=== PATIENT | female | born 2005 | race Caucasian/White ===

== ENCOUNTER 2024-08-30 10:00 | Emergency (ER) | payer OTHER, SELFPAY ==
[2024-08-30 10:40] VITALS: BP 162/86; PULSE 80; RESP 16; TEMP 36.6; O2SAT 100
--- NOTE | 2024-08-30 10:45 | ED_ITS ---
HPI - Eye Problem General Chief complaint: Eye Problems Stated complaint: head injury (swollen) Time Seen by Provider: 08/30/24 10:45 Source: patient Mode of arrival: ambulatory Limitations: no limitations History of Present Illness HPI Narrative: 19-year-old female presented for complaint of swelling and bruising over the right eyebrow following an injury last night. She states she struck the forehead on the metal bed frame. Says at the time she had a large red painful area. Says this morning she woke with more swelling to the right forehead and upper eyelid but less pain. Patient took ibuprofen last night. Currently rates pain 3/10. Denies vision changes, eye pain, dizziness, nausea. MD chief complaint: eye pain Related Data Allergies Allergy/AdvReac Type Severity Reaction Status Date / Time No Known Allergies Allergy Verified 08/30/24 10:37 Review of Systems 2 Review of Systems: CONSTITUTIONAL: Denies body aches, fever, chills EYES:Endorses swelling, and pain to right forehead/ eye; Denies visual changes, FB sensation, photophobia ENT: Denies rhinorrhea, congestion, sore throat, or otalgia. CARDIOVASCULAR: Denies chest pain, palpitations RESPIRATORY: Denies cough or dyspnea. GASTROINTESTINAL: Denies abdominal pain, nausea, vomiting, or diarrhea. SKIN: reports eye bruising MUSCULOSKELETAL: Denies back pain, joint pain, or myalgia. NEUROLOGIC: Denies headache, numbness, tingling, or weakness. All systems reviewed & are unremarkable except as noted in HPI and below PMFSH Comments At time of signature, I have reviewed and agree with nursing past medical, surgical, social and family history unless otherwise noted. Please see nursing chart for further information. There is no relevant family history pertinent to the presenting complaint Exam Narrative: GENERAL: Well-appearing HEAD: Normocephalic, atraumatic. EYES: Right upper eye and forehead with swelling; eye is not occluded. Mild bruising noted to upper eyelid. No conjunctival injection. PERRLA, EOMI. Lid eversion shows no FB. ENT: Mucous membranes pink and moist. No rhinorrhea. TMs normal bilaterally. Throat normal. Uvula midline. CHEST: Clear to auscultation. HEART: Regular rate and rhythm. ABDOMEN: Soft, nontender, nondistended SKIN: Warm, dry, no rash. Normal skin turgor. NEURO: No focal deficits. Alert and oriented x3 Course Course Emergency Course: Patient is aware of diagnosis, understands and agrees to treatment plan. Anticipatory guidance given. Patient agrees to follow-up as directed and is aware of reasons to seek care at the emergency department. Portions of this record may have been created with voice recognition software Level of Care: Express Care Visit Vital Signs Vital signs: Vital Signs Temperature 97.8 F 08/30/24 10:40 Pulse Rate 80 08/30/24 10:40 Respiratory Rate 16 08/30/24 10:40 Blood Pressure 162/86 H 08/30/24 10:40 Pulse Oximetry 100 08/30/24 10:40 Oxygen Delivery Room Air 08/30/24 10:40 Temperature 97.8 F 08/30/24 10:40 Pulse Rate 80 08/30/24 10:40 Respiratory Rate 16 08/30/24 10:40 Blood Pressure 162/86 H 08/30/24 10:40 Pulse Oximetry 100 08/30/24 10:40 Oxygen Delivery Room Air 08/30/24 10:40 MDM - Eye Problem MDM Narrative Medical decision making narrative: declined xray. Discussed physical exam findings. Discussed ER for CT, however pt's injury appears to be a contusion to the right forehead. Advised supportive measures and signs/symptoms to go to the ER, v/u. Pt is appropriate for outpt treatment and f/u. Differential Diagnosis Differential diagnosis: Likely corneal abrasion, conjunctivitis, acute iritis and other Discharge Plan Discharge Clinical Impression: Contusion of head Patient Disposition: Home, Self-Care Condition: Stable Instructions: Facial Contusion (ED) Additional Instructions: Go to the ER immediately for eye Pain, Double vision, Difficulty moving the eye, Nausea and vomiting, or any worsening symptoms or concerns. Continue Tylenol every 8 hours Ice pack to the area for 10 minute intervals every hour Keep head elevated to reduce swelling Follow up with your primary care provider as needed Go to the ER for worsening symptoms or concerns? Patient Language: Green[place]ic Follow-up/Referrals: [place], [Primary Care Provider] - Stand Alone Forms: Work/School Release IP Time of Disposition: 11:03
--- OUTSIDE RECORDS SUMMARY | 2024-08-30 12:58 | XMS_ITS | Continuity of Care Document ---
Author Name [facility] Organization [facility] Care Team Providers Care [employer] Assembler Name Role Phone DOD-[facility] Unavailable Unavailable Problems Combined list of problems from Department of Defense and Veterans Affairs facilities. It does not include entries that were removed or entered in error. Problem Status Onset Date Problem Type Date of Resolution Comments Source CLAUDIA - Generalized anxiety disorder Active 04/05/20 24 Diagnosis 6130C-Af- C-375Th Medgrp-Sc jose allergic rhinitis Active Condition DoD Preventive Medicine Established Patient Checkup Child 5-11 Years Active Condition DoD constipation Inactive Condition DoD acute bronchitis Inactive Condition DoD contusion with intact skin surface midline of nose Inactive Condition DoD visit for: examination of subpopulation Active Condition DoD strabismus right eye Active Condition DoD New Patient Age 5-11 School / Camp Physical Inactive Condition DoD cough Active Condition DoD visit for: administrative purpose Active Condition DoD Preventive Medicine New Patient Evaluation Childhood 5-11 Years Active Condition DoD common cold Active Condition DoD papular urticaria Active Condition DoD Need For Vaccination Chickenpox (Active) Active Condition DoD Need For Vaccination Polio Active Condition DoD Need For Vaccination Against DTP Active Condition DoD eczema Active Condition DoD Preventive Medicine Established Patient Checkup Child 1-4 Years Active Condition DoD dermatitis Active Condition assured m other. Advice mother has refill on kenalog cream and elidel which she can pollo at pharmacy and continue for another month.f/u if no improvement. [facility] routine history and physical well-baby (28 days - 2 yrs) Inactive Condition Discussed new CDC, ACIP recommendation for universal Hepatitis A vaccination at 12 months to 23 months of age with parent of patient. Recommended that patient receive vaccine. DoD Medications Combined list of outpatient medications from Department of Defense and Veterans Affairs facilities.Medications provided include 1) outpatient medications from the last 15 months, and 2) patient-reported medications. Medication Details Route Status Patient Instructions Prescription Expires Prescription Number Last Dispense Date Ordering Provider Order Date Order Qty Source mirtazapine 15 mg oral tablet 1 tab(s), Oral, every day at bedtime, # 10 tab(s), 0 total refill(s ), Maintena nce, Pharmacy : [facility] Oral (given by mouth) Ordered 10.0 6130C-A f-C-375 Th [facility] mirtazapine 30 mg oral tablet 1 tab(s), Oral, every day at bedtime, # 45 tab(s), 0 total refill(s ), [facility], Pharmacy : [facility] Oral (given by mouth) Ordered 45.0 6130C-A f-C-375 Th [facility] Allergies, Adverse Reactions, Alerts Combined list of allergies from Department of Defense and Veterans Affairs facilities. It does not include entries that were removed or entered in error. Substance Category Reaction Severity Reaction type Status Date Reported Comments Source No Known Allergies Drug allergy (disorder) active 02/04/2018 [place] [address] Immunizations Combined list of available immunizations from the Department of Defense and Veterans Affairs facilities. Immunization Series Date Given Administered By Site Reaction Lot Number CVX Code Drug Weather Stripper Status Comments Source Meningococcal MCV4O 2021 ALUL, () Not Given Meningoco ccal MCV4O DoD tetanus, diphtheria, acellular pertu is 2016 zzLef t Arm [id number] GlaxoSmithKli ne complet ed tetanus, diphtheri a, acellular pertussis 10/01/16 Given Ambulat ory Pharmac y meningococcal A,C,Y,W-135 (MCV4P) 2016 zzRig Arm [id number] 114 sanofi pasteur complet ed meningoco ccal A,C,Y,W-1 35 (MCV4P) 10/01/16 Given Ambulat ory Pharmac y influenza, seasonal, injectable-pf 2016 zzRig Arm [id number] Seqirus complet ed influenza , seasonal, injectabl e-pf 10/01/16 Given Ambulat ory Pharmac y meningococcal polysaccharid e (groups A, C, Y and W-135) diphtheria toxoid conjugate vaccine (MCV4P) 1 2016 Unknown, Provider [id number] 114 Sanofi Pasteur ([facility]) complet ed meningoco ccal polysacch aride (groups A, C, Y and W-135) diphtheri a toxoid conjugate vaccine (MCV4P) DoD tetanus toxoid, reduced diphtheria toxoid, and acellular pertu is vaccine, adsorbed 1 2016 Unknown, Provider [id number] [facility] SmithKline (SKB) complet ed tetanus toxoid, reduced diphtheri a toxoid, and acellular pertussis vaccine, adsorbed DoD Influenza, seasonal, injectable, preservative free 1 2016 Unknown, Provider [id number] 140 Seqirus (SEQ) complet ed Influenza , seasonal, injectabl e, preservat nazario free DoD influenza, seasonal, injectable-pf 2014 [id number] CSL Behring complet ed influenza , seasonal, injectabl e-pf 05/05/15 Given Ambulat ory Pharmac y Influenza, seasonal, injectable, preservative free 1 2014 Unknown, Provider [id number] 140 CSL Biotherapies, Inc. (CSL) complet ed Influenza , seasonal, injectabl e, preservat nazario free DoD influenza virus vaccine,split 2009 zzLef t Arm [id number] 15 sanofi pasteur complet ed influenza virus vaccine,s plit 01/08/10 Given Ambulat ory Pharmac y Novel influenza-H1N 1-09, injectable 2009 zzLef t Arm [id number] 127 sanofi pasteur complet ed Novel influenza -Q5H7-94, injectabl e 01/08/10 Given Ambulat ory Pharmac y influenza virus vaccine, split virus (incl. purified surface antigen)-reti red CODE 1 2009 Unknown, Provider [id number] 15 Sanofi Pasteur ([facility]) complet ed influenza virus vaccine, split virus (incl. purified surface antigen)- retired CODE DoD Novel influenza-H1N 1-09, injectable 1 2009 Unknown, Provider [id number] 127 Sanofi Pasteur ([facility]) complet ed Novel influenza -O5A5-74, injectabl e DoD Novel influenza-H1N 1-09, injectable 2009 zzLef t Arm [id number] 127 sanofi pasteur complet ed Novel influenza -E7Y6-80, injectabl e 10/19/09 Given Ambulat ory Pharmac y influenza virus vaccine,split 2009 zzLef t Arm [id number] 15 sanofi pasteur complet ed influenza virus vaccine,s plit 10/19/09 Given Ambulat ory Pharmac y influenza virus vaccine, split virus (incl. purified surface antigen)-reti red CODE 1 2009 Unknown, Provider [id number] A 15 Sanofi Pasteur ([facility]) complet ed influenza virus vaccine, split virus (incl. purified surface antigen)- retired CODE DoD Novel influenza-H1N 1-09, injectable 1 2009 Unknown, Provider [id number] 127 Sanofi Pasteur ([facility]) complet ed Novel influenza -[id number], injectabl e DoD tuberculin purified protein derivative 2009 zzLef t Arm [id number] 96 sanofi pasteur complet ed Patient Tolerance : Negative Ambulat ory Pharmac y tuberculin skin test; purified protein derivative solution, intradermal 1 2009 Unknown, Provider [id number] 96 Sanofi Pasteur ([facility]) complet ed tuberculi n skin test; purified protein derivativ e solution, intraderm al DoD tuberculin purified protein derivative 2008 zzLef t Arm [id number] 96 sanofi pasteur complet ed Patient Tolerance : Negative Ambulat ory Pharmac y Hep A, pediatric, unspecified formul 2008 zzRig ht Arm [id number] 31 GlaxoSmithKli ne complet ed Hep A, pediatric , unspecifi ed formul 10/17/08 Given Ambulat ory Pharmac y hepatitis A vaccine, pediatric dosage, unspecified formulation 2 2008 Unknown, Provider [id number] 31 SmithKline (SKB) complet ed hepatitis A vaccine, pediatric dosage, unspecifi ed formulati on DoD tuberculin skin test; purified protein derivative solution, intradermal 1 2008 Unknown, Provider [id number] 96 Sanofi Pasteur ([facility]) complet ed tuberculi n skin test; purified protein derivativ e solution, intraderm al DoD varicella virus vaccine 2007 zzLef t Arm [id number] 21 Merck & Company Inc complet ed varicella virus vaccine 04/28/08 Given Ambulat ory Pharmac y poliovirus vaccine, inactivated 2007 zzLef t Arm [id number] 10 sanofi pasteur complet ed polioviru s vaccine, inactivat ed 04/28/08 Given Ambulat ory Pharmac y DTaP 2007 zzLef t Thigh [id number] 20 GlaxoSmithKli ne complet ed DTaP 04/28/08 Given Ambulat ory Pharmac y poliovirus vaccine, inactivated 4 2007 Unknown, Provider [id number] 10 Sanofi Pasteur ([facility]MC) complet ed polioviru s vaccine, inactivat ed DoD diphtheria, tetanus toxoids and acellular pertu is vaccine 5 2007 Unknown, Provider [id number] 20 SmithCityLiveine (SKB) complet ed diphtheri a, tetanus toxoids and acellular pertussis vaccine DoD varicella virus vaccine 2 2007 Unknown, Provider [id number] Merck (MSD) complet ed varicella virus vaccine DoD Hep A, pediatric, unspecified formul 2007 zzLef t Arm [id number] 31 GlaxoSmithKli ne complet ed Hep A, pediatric , unspecifi ed formul 03/23/08 Given Ambulat ory Pharmac y hepatitis A vaccine, pediatric dosage, unspecified formulation 1 2007 Unknown, Provider [id number] 31 SmithCityLiveine (SKB) complet ed hepatitis A vaccine, pediatric dosage, unspecifi ed formulati on DoD pneumococcal 7-valent vaccine 2004 Transcr ibed 100 Unknown complet ed pneumococ cruz 7-valent vaccine 06/10/05 Given Ambulat ory Pharmac y DTaP 2004 Transcr ibed 20 Unknown complet ed DTaP 06/10/05 Given Ambulat ory Pharmac y Hib, unspecified formulation 2004 Transcr ibed 17 Unknown complet ed Hib, unspecifi ed formulati on 06/10/05 Given Ambulat ory Pharmac y hepatitis B pediatric/ado lescent 2004 Transcr ibed 08 Unknown complet ed hepatitis B pediatric /adolesce nt 06/10/05 Given Ambulat ory Pharmac y measles/mumps /rubella virus vaccine 2004 Transcr ibed 03 Unknown complet ed measles/m umps/rube lla virus vaccine 06/10/05 Given Ambulat ory Pharmac y varicella virus vaccine 2004 Transcr ibed 21 Unknown complet ed varicella virus vaccine 06/10/05 Given Ambulat ory Pharmac y poliovirus vaccine, inactivated 2004 Transcr ibed 10 Unknown complet ed polioviru s vaccine, inactivat ed 06/10/05 Given Ambulat ory Pharmac y measles, mumps and rubella virus vaccine 2 2004 Unknown, Provider Transcr ibed 03 Other (OTH) complet ed measles, mumps and rubella virus vaccine DoD hepatitis B vaccine, pediatric or pediatric/ado lescent dosage 3 2004 Unknown, Provider Transcr ibed 08 Other (OTH) complet ed hepatitis B vaccine, pediatric or pediatric /adolesce nt dosage DoD poliovirus vaccine, inactivated 3 2004 Unknown, Provider Transcr ibed 10 Other (OTH) complet ed polioviru s vaccine, inactivat ed DoD Haemophilus influenzae type b vaccine, conjugate unspecified formulation 4 2004 Unknown, Provider Transcr ibed 17 Other (OTH) complet ed Haemophil us influenza e type b vaccine, conjugate unspecifi ed formulati on DoD diphtheria, tetanus toxoids and acellular pertu is vaccine 4 2004 Unknown, Provider Transcr ibed 20 Other (OTH) complet ed diphtheri a, tetanus toxoids and acellular pertussis vaccine DoD varicella virus vaccine 1 2004 Unknown, Provider Transcr ibed 21 Other (OTH) complet ed varicella virus vaccine DoD pneumococcal conjugate vaccine, 7 valent 4 2004 Unknown, Provider Transcr ibed 100 Other (OTH) complet ed pneumococ cruz conjugate vaccine, 7 valent DoD measles/mumps /rubella virus vaccine 2004 Transcr ibed 03 Unknown complet ed measles/m umps/rube lla virus vaccine 05/02/05 Given Ambulat ory Pharmac y measles, mumps and rubella virus vaccine 1 2004 Unknown, Provider Transcr ibed 03 Other (OTH) complet ed measles, mumps and rubella virus vaccine DoD hepatitis B pediatric/ado lescent 2004 Transcr ibed 08 Unknown complet ed hepatitis B pediatric /adolesce nt 01/03/05 Given Ambulat ory Pharmac y DTaP 2004 Transcr ibed 20 Unknown complet ed DTaP 01/03/05 Given Ambulat ory Pharmac y Hib, unspecified formulation 2004 Transcr ibed 17 Unknown complet ed Hib, unspecifi ed formulati on 01/03/05 Given Ambulat ory Pharmac y hepatitis B vaccine, pediatric or pediatric/ado lescent dosage 2 2004 Unknown, Provider Transcr ibed 08 Other (OTH) complet ed hepatitis B vaccine, pediatric or pediatric /adolesce nt dosage DoD Haemophilus influenzae type b vaccine, conjugate unspecified formulation 3 2004 Unknown, Provider Transcr ibed 17 Other (OTH) complet ed Haemophil us influenza e type b vaccine, conjugate unspecifi ed formulati on DoD diphtheria, tetanus toxoids and acellular pertu is vaccine 3 2004 Unknown, Provider Transcr ibed 20 Other (OTH) complet ed diphtheri a, tetanus toxoids and acellular pertussis vaccine DoD pneumococcal 7-valent vaccine 2004 Transcr ibed 100 Unknown complet ed pneumococ cruz 7-valent vaccine 04 Given Ambulat ory Pharmac y pneumococcal conjugate vaccine, 7 valent 3 2004 Unknown, Provider Transcr ibed 100 Other (OTH) complet ed pneumococ cruz conjugate vaccine, 7 valent DoD DTaP 2004 Transcr ibed 20 Unknown complet ed DTaP 04 Given Ambulat ory Pharmac y poliovirus vaccine, inactivated 2004 Transcr ibed 10 Unknown complet ed polioviru s vaccine, inactivat ed 04 Given Ambulat ory Pharmac y pneumococcal 7-valent vaccine 2004 Transcr ibed 100 Unknown complet ed pneumococ cruz 7-valent vaccine 04 Given Ambulat ory Pharmac y Hib, unspecified formulation 2004 Transcr ibed 17 Unknown complet ed Hib, unspecifi ed formulati on 04 Given Ambulat ory Pharmac y poliovirus vaccine, inactivated 2 2004 Unknown, Provider Transcr ibed 10 Other (OTH) complet ed polioviru s vaccine, inactivat ed DoD Haemophilus influenzae type b vaccine, conjugate unspecified formulation 2 2004 Unknown, Provider Transcr ibed 17 Other (OTH) complet ed Haemophil us influenza e type b vaccine, conjugate unspecifi ed formulati on DoD diphtheria, tetanus toxoids and acellular pertu is vaccine 2 2004 Unknown, Provider Transcr ibed 20 Other (OTH) complet ed diphtheri a, tetanus toxoids and acellular pertussis vaccine DoD pneumococcal conjugate vaccine, 7 valent 2 2004 Unknown, Provider Transcr ibed 100 Other (OTH) complet ed pneumococ cruz conjugate vaccine, 7 valent DoD Hib, unspecified formulation 2003 Transcr ibed 17 Unknown complet ed Hib, unspecifi ed formulati on 04 Given Ambulat ory Pharmac y poliovirus vaccine, inactivated 2003 Transcr ibed 10 Unknown complet ed polioviru s vaccine, inactivat ed 04 Given Ambulat ory Pharmac y pneumococcal 7-valent vaccine 2003 Transcr ibed 100 Unknown complet ed pneumococ cruz 7-valent vaccine 04 Given Ambulat ory Pharmac y DTaP 2003 Transcr ibed 20 Unknown complet ed DTaP 04 Given Ambulat ory Pharmac y poliovirus vaccine, inactivated 1 2003 Unknown, Provider Transcr ibed 10 Other (OTH) complet ed polioviru s vaccine, inactivat ed DoD Haemophilus influenzae type b vaccine, conjugate unspecified formulation 1 2003 Unknown, Provider Transcr ibed 17 Other (OTH) complet ed Haemophil us influenza e type b vaccine, conjugate unspecifi ed formulati on DoD diphtheria, tetanus toxoids and acellular pertu is vaccine 1 2003 Unknown, Provider Transcr ibed 20 Other (OTH) complet ed diphtheri a, tetanus toxoids and acellular pertussis vaccine DoD pneumococcal conjugate vaccine, 7 valent 1 2003 Unknown, Provider Transcr ibed 100 Other (OTH) complet ed pneumococ cruz conjugate vaccine, 7 valent DoD hepatitis B pediatric/ado lescent 2003 Transcr ibed 08 Unknown complet ed hepatitis B pediatric /adolesce nt 04 Given Ambulat ory Pharmac y hepatitis B vaccine, pediatric or pediatric/ado lescent dosage 1 2003 Unknown, Provider Transcr ibed 08 Other (OTH) complet ed hepatitis B vaccine, pediatric or pediatric /adolesce nt dosage DoD Vital Signs Combined list of inpatient and outpatient Vital Signs from Department of Defense and Veterans Affairs, ranging from 12 months to all on record, depending upon the facility. Vital Sign Value Date Comments Source Systolic Blood Pressure 132 mm[Hg] 04/05/2024 17:54:00 6362N-Wd-R-375[facility] Diastolic Blood Pressure 84 mm[Hg] 04/05/2024 17:54:00 7218C-Ay-T-375Th [facility] Mean Arterial Pressure, Calc 100 mm[Hg] 04/05/2024 17:54:00 9443P-Ke-S-3 75Th [facility] Peripheral Pulse Rate 84 bpm 04/05/2024 17:54:00 4978Q-Au-H-375Th [facility] Respiratory Rate 14 br/min 04/05/2024 17:54:00 4277K-Mj-Y-375Th [facility] BP Site Right arm 04/05/2024 17:54:00 6130C -Af-C-375Th [facility] Blood Pressure Manual Automatic 04/05/2024 17:54:00 4153O-Vd-G-375Th [facility] Encounters Combined list of: 1) Encounters from Department of Veterans Affairs facilities going backup to the last 18 months, not all VA inpatient encounters are included; 2) Encounters from the Department of Defense facilities going backup to 280 months. Location Location Details Encounter Type Encounter Number Reason For Visit Attending Provider ADM Date DC Date Status Disposition Source [employer](Ped iatrics Contract) OUTPATIENT [id number] elizabeth BENITO Jacome 10/30 Released w/o Limitations [employer](P ediatri cs Contrac t) [employer](Ped iatrics Contract) OUTPATIENT [id number] rash on stomach and legs BENITO NANCE 01/23 Released w/o Limitations [employer](P ediatri cs Contrac t) [place] [employer] OUTPATIENT [id number] skin rash for while, it goes away once but come back again JOY DICKSON ([place]) 12/16 [place]ased w/o Limitations [place] ([place] [employer] ) [place] [employer] OUTPATIENT [id number] rash on stomach area comes back again JOY DICKSON ([place]) 01/29 [place] w/o Limitations [place] [employer] [employer] ) [place] Immunizat ions) OUTPATIENT [id number] 2 yo well AGA GONZALEZ 11/02 Released w/o Limitations [place] ([facility] Immuniz ations) [place]([facility] Immunizat ions) OUTPATIENT [id number] eczema getting worse AGA GONZALEZ 01/20 Released w/o Limitations [facility] ([facility] Immuniz ations) [facility]) OUTPATIENT [id number] 3yo well MARK, CLAIRALYN L 04/28 Released w/o Limitations [facility] ([facility]) OUTPATIENT [id number] 3yo-luis k circles on back,ey e MARK, CLAIRALYN L 05/25 Released w/o Limitations [facility] ([facility]) OUTPATIENT [id number] 3yo-cou cpk6giz s;101t x 2days EMMANUELALEJANDRA K 10/18 Released w/o Limitations [facility] ([facility]) [employer](Ped iatric Clinic) OUTPATIENT [id number] 4 year well DELMY LOVE S 09/22 Released w/o Limitations [employer](P ediatri c Clinic) [employer](Ped iatric Clinic) TELE CONSULT [id number] mop calling regardi ng pt's rimma hi rk dropped off on 0 KAITLIN HARMON 10/25 [employer](P ediatri c Clinic) [employer](Ped iatric Clinic) OUTPATIENT [id number] 5 year well child JINNY CRAWLEY A 08/03 Released w/o Limitations [employer](P ediatri c Clinic) [employer](Egl in Peds Driver) OUTPATIENT [id number] 6 yo physicGRACE Bedoya 03/12 Released w/o Limitations [employer](E glin Peds Driver) [employer](Exc eptional Family [facility] Program) TELE CONSULT [id number] Notes Entered by: Regi SOTO 12 Jun 2012 1204 ------- ------- ------- ------- -- Medical record review for relocat CHAIM Hopkins 06/12 [facility](E xceptio nal Family Mbr Program ) [facility](Exc eptional Family Mbr Program) OUTPATIENT [id number] Notes Entered by: ANA CLEMENS 23 Jun 2012 1534 ------- ------- ------- ------- -- Medical Kayla fam Appoint CHAIM Cano 06/23 Released w/o Limitations [address] [place] [address](E xceptio nal Family Mbr Program ) [place] [address]([place] [facility]) OUTPATIENT [id number] PT HAS NOSE PAIN SEGUNDOYU RICO V 10/08 Released w/o Limitations [facility] [place] [address]([place] [facility]) [place] [address]([place] [facility]) OUTPATIENT [id number] cough MALIKA ELI 12/24 Released w/o Limitations [facility] [place] [address]([place] [facility]) [place] [address]([place] [facility]) OUTPATIENT [id number] WELL CHILD DESMOND CHAUDHARY 07/09 Released w/o Limitations [facility] [place] [address]([place] [facility]) [place] [address]([place] [facility]) OUTPATIENT [id number] pediatr ica dental DESMOND Delacruz 01/27 Released w/o Limitations [facility] [place] [address]([place] [facility]) [place] [address]([place] [facility]) OUTPATIENT [id number] fever sore throat DESMOND CHAUDHARY 08/15 Released w/o Limitations [facility] [place] [address]([place] [facility]) [place] [address]([place] [facility]) OUTPATIENT [id number] REFERRA L TO DERM/WH ASC PEDS DESMOND CHAUDHARY L 10/19 Released w/o Limitations [facility] [place] [address]([place] [facility]) [place] [address]([facility]) OUTPATIENT [id number] MOLLUSC UM CONTAGI OSUM DANAY NOWAK P 11/10 Released w/o Limitations [facility] [address](Olivia duran,[facility]) [place] [address]([facility] Ped Team A) OUTPATIENT [id number] F/U FOR DENTAL ISSUES/ X-RAY/W H PEDDESMOND IQBAL L 04/27 Released w/o Limitations [facility] [place] [address]([place] [facility]) [place] [address]([facility] Ped Team A) OUTPATIENT [id number] ACNE PROBLEM POSS DERM CONSULT DESMOND CHAUDHARY L 08/30 [facility] w/o Limitations [facility] [place] [address] [place] [address]([facility] Ped Team A) OUTPATIENT [id number] EVAL WART ON HANDS/W H PEDS DESMOND CHAUDHARY L 12/03 Released w/o Limitations [facility] [place] [address] [place] [address]([facility], [facility]) OUTPATIENT [id number] Viral wart, unspeci maryjaneed MORENA CHERRY M 12/17 Released w/o Limitations [facility] [place] [address]([facility] [place] [address]([facility]) OUTPATIENT [id number] fever/s orethro at/stom achache /cough JUDITH MURRELL 12/22 Released w/o Limitations [place] [address]([facility], [facility]) [employer]([facility]eds [facility]) OUTPATIENT [id number] JULIA Love 02/02 Released w/o Limitations [employer](E glin Peds Alpha) [employer]([facility] in Peds Driver) TELE CONSULT [id number] Notes Entered by: RASHID DURAN 04 Feb 2018 0755 ------- ------- ------- ------- -- Lab Results CARMEN ACEVEDO 02/04 Referred for Appointment [employer](E glin Peds Driver) [employer]([facility]) OUTPATIENT [id number] lab results JULIA DURAN 02/04 Released w/o Limitations [employer](E [facility]eds Alpha) [employer]([facility] in Peds Driver) OUTPATIENT [id number] 5 fu appt/lo JACOBY Barboza 05/26 Released w/o Limitations [employer](E glin Peds Driver) [employer]([facility] in Peds Driver) TELE CONSULT [id number] Notes Entered by: JACOBY FORD 28 May 2018 0850 ------- ------- ------- ------- -- Please check for urine results on 8. SILVIA ARVIZU 05/28 Referred for Appointment [employer](E glin Peds Driver) [employer]([facility] Peds Driver) TELE CONSULT [id number] Notes Entered by: ANGELA ACEVEDO 20 Jul 2018 0919 ------- ------- ------- ------- -- ER F/u CARMEN ACEVEDO 07/20 Other Not Elsewhere Classified [employer](E glin Peds Driver) [employer](Ort hopedi EG) OUTPATIENT [id number] 3 Fx R distal Radius MEL PATEL 07/20 Released w/o Limitations [employer](O rthoped ic EG) [facility] [facility] P[facility] Driver) TELE CONSULT [id number] Notes Entered by: JACOBY FORD 23 Jul 2018 0856 ------- ------- ------- ------- -- Normal test for fecal blood. CARMEN ACEVEDO 07/23 Referred for Appointment [employer]([facility] Driver) [employer](Ort hopedic [place]) OUTPATIENT [id number] 8 f/u right wrist BRYAN CHASE 07/23 Released w/o Limitations [employer](O rthoped ic [facility]) [employer]([facility]rt hoped[facility]) OUTPATIENT [id number] POSTOP ORIF Wrist ([facility]) - DOS 11 Jul BRYAN CHASE 08/04 Released w/o Limitations [employer](O rthoped ic [facility]) [employer](Occ upat Ther [facility]) OUTPATIENT [id number] right distal radius thermop last splint. DOS 11 Jul OTILIA GARCIA 08/05 Released w/o Limitations [employer](O ccupat Ther [facility]) [employer]([facility] Ther [facility]) OUTPATIENT [id number] OTILIA GARCIA 08/12 Released w/o Limitations [employer](O ccupat Ther [facility]) [employer](Ort hopedic [place]) OUTPATIENT [id number] f/u because Kota says so BRYAN CHASE 08/27 Released w/o Limitations [employer](O rthoped ic [place]) [employer]([facility] upat Ther [facility]) OUTPATIENT [id number] OTILIA GARCIA 09/04 Released w/o Limitations [employer]([facility]cupat Ther [facility]) [employer]([facility] up[facility] Ther [facility]) OUTPATIENT [id number] OTILIA GARCIA 09/10 Released w/o Limitations [employer](O ccupat Ther [facility]) [employer]([facility] upat Ther [facility]) OUTPATIENT [id number] OTILIA GARCIA 09/18 Released w/o Limitations [employer](O ccupat Ther [place]) [facility](Ort hopedic EG) OUTPATIENT [id number] 6 f/u right wrist BRYAN CHASE 09/28 Released w/o Limitations [employer] [facility](O rthoped ic [facility]) [facility](Occ upat Ther [facility]) OUTPATIENT [id number] OTILIA GARCIA 09/29 Released w/o Limitations [employer](O ccupat Ther [place]) [facility] in Peds Driver) OUTPATIENT [id number] REFERRA BETHEL TSANG 04/21 Released w/o Limitations [employer]([facility]in Peds Driver) [facility] Peds Driver) TELE CONSULT [id number] Notes Entered by: Queta HARMON 27 May 2019 1418 ------- ------- ------- ------- -- NETWORK RESULT - SURG 9 BETHEL CHAUDHARY 05/27 [facility](E glin Peds Driver) [facility](Ort hopedic [facility]) OUTPATIENT [id number] PREOP - DOS Jun BRYAN CHASE 06/17 Released w/o Limitations [employer] [facility](O rthoped ic [facility]) [facility](Ort hopedic [facility]) OUTPATIENT [id number] POSTOP Right Wrist [facility] ([facility]) - DOS Jun MARITA TAYLOR 07/16 Released w/o Limitations [employer](O rthoped ic [facility]) [facility](Ort hopedic EG) OUTPATIENT [id number] f/u right wrist BRYAN CHASE 07/29 Released w/o Limitations [facility](O rthoped ic EG) [id number] [id number] General ized anxiety disorde paula SOLIS 04/05 Discharge Disposition: Home or Self Care [id number] [facility] [place] Procedures Combined list of: 1) Procedures from Department of Veterans Affairs facilities going back up to thelast 18 months, not all VA non-surgical procedures are included; 2) All procedures from the Department of Defense facilities. Procedure Procedure Type Code Date Perfomer Comments Sourc e DIPHTHERIA, TETANUS TOXOIDS, AND ACELLULAR PERTUSSIS VACCINE (DTAP), WHEN ADMINISTERED TO INDIVIDUALS YOUNGER THAN 7 YEARS, FOR INTRAMUSCULAR USE [facility] UNLISTED SPECIAL SERVICE, PROCEDURE OR REPORT [facility] PARING OR CUTTING OF BENIGN HYPERKERATOTIC LESION (EG, CORN OR CALLUS); 2 TO 4 LESIONS [facility] DEEP SEDATION/GENERAL ANESTHESIA-EACH ADDITIONAL 15 MINUTES [facility] CULTURE, PRESUMPTIVE, PATHOGENIC ORGANISMS, SCREENING ONLY [facility] DEEP SEDATION/GENERAL ANESTHESIA-EACH ADDITIONAL 15 MINUTES [facility] POSTOPERATIVE FOLLOW-UP VISIT, NORMALLY INCLUDED IN THE SURGICAL PACKAGE, INDICATE THAT EVALUATION & MANAGEMENT SERVICE WAS PERFORMED DURING A POSTOPERATIVE PERIOD REASON RELATED ORIGINAL PROCEDURE [facility] SPLINT, PREFABRICATED, WRIST OR ANKLE [facility] UNLISTED SPECIAL SERVICE, PROCEDURE OR REPORT [facility] RE-EVALUATION OF OCCUPATIONAL THERAPY ESTABLISHED PLAN OF CARE,REQ:ASSESS CHANGES IN PAT FUNCT/MED STATUS W REVISED PLAN OF CARE;TYPICALLY, 30 MINUTES ARE SPENT [id number] WITH THE PATIENT &/FAMILY [facility] POSTOPERATIVE FOLLOW-UP VISIT, NORMALLY INCLUDED IN THE SURGICAL PACKAGE, INDICATE THAT EVALUATION & MANAGEMENT SERVICE WAS PERFORMED DURING A POSTOPERATIVE PERIOD REASON RELATED ORIGINAL PROCEDURE [facility] RE-EVALUATION OF OCCUPATIONAL THERAPY ESTABLISHED PLAN OF CARE,REQ:ASSESS CHANGES IN PAT FUNCT/MED STATUS W REVISED PLAN OF CARE;TYPICALLY, 30 MINUTES ARE SPENT [id number] WITH THE PATIENT &/FAMILY [facility] RE-EVALUATION OF OCCUPATIONAL THERAPY ESTABLISHED PLAN OF CARE,REQ:ASSESS CHANGES IN PAT FUNCT/MED STATUS W REVISED PLAN OF CARE;TYPICALLY, 30 MINUTES ARE SPENT [id number] WITH THE PATIENT &/FAMILY [facility] THERAPEUTIC PROCEDURE, 1 OR MORE AREAS, EACH 15 MINUTES; THERAPEUTIC EXERCISES TO DEVELOP STRENGTH AND ENDURANCE, RANGE OF MOTION AND FLEXIBILITY [facility] THERAPEUTIC PROCEDURE, 1 OR MORE AREAS, EACH 15 MINUTES; THERAPEUTIC EXERCISES TO DEVELOP STRENGTH AND ENDURANCE, RANGE OF MOTION AND FLEXIBILITY 019 [facility] FINGER ORTHOSIS, WITHOUT JOINTS, MAY INCLUDE SOFT INTERFACE, CUSTOM FABRICATED INCLUDES FITTING AND ADJUSTMENT 019 [facility] OPEN TREATMENT OF DISTAL RADIAL INTRA-ARTICULAR FRACTURE OR EPIPHYSEAL SEPARATION; WITH INTERNAL FIXATION OF 3 OR MORE FRAGMENTS 019 [facility] TELE ASSESS & MGT SRV PROV QUAL NONPHYS HLTH CARE PRO TO EST PAT,PARENT,GUARD NOT ORIG REL ASSESS & MGT SRV PROV W/IN PREV 7 DAYS NOR LEAD ASSESS & MGT SRV/PX W/IN NXT 24 HR/SOON APT;5-10 MIN MED DIS 019 DoD TELE ASSESS & MGT SRV PROV QUAL NONPHYS HLTH CARE PRO TO EST PAT,PARENT,GUARD NOT ORIG REL ASSESS & MGT SRV PROV W/IN PREV 7 DAYS NOR LEAD ASSESS & MGT SRV/PX W/IN NXT 24 HR/SOON APT;5-10 MIN MED DIS 019 [facility] SCREENING TEST OF VISUAL ACUITY, QUANTITATIVE, BILATERAL 018 [facility] DEMONSTRATION AND/OR EVALUATION OF PATIENT UTILIZATION OF AN AEROSOL GENERATOR, NEBULIZER, METERED DOSE INHALER OR IPPB DEVICE 011 [facility] SCREENING TEST OF VISUAL ACUITY, QUANTITATIVE, BILATERAL 010 [facility] Occupational Therapy Re-Evaluation Occupational Therapy Re-Evaluation [id number] 019 OTILIA GARCIA Physical Therapy: ___ Se ion Segments, 15 Minutes Each Physical Therapy: ___ Session Segments, 15 Minutes Each 82615 019 OTILIA GARCIA Occupational Therapy Re-Evaluation Occupational Therapy Re-Evaluation 64187 019 OTILIA GARCIA Physical Therapy: ___ Se ion Segments, 15 Minutes Each Physical Therapy: ___ Session Segments, 15 Minutes Each 30258 019 OTILIA GARCIA Physical Therapy Mobilization Joint Physical Therapy Mobilization Joint 63430 019 OTILIA GARCIA Occupational Therapy Re-Evaluation Occupational Therapy Re-Evaluation 34818 019 OTILIA GARCIA Physical Therapy: ___ Se ion Segments, 15 Minutes Each Physical Therapy: ___ Session Segments, 15 Minutes Each 69302 019 OTILIA GARCIA Physical Therapy Mobilization Joint Physical Therapy Mobilization Joint 83857 019 OTILIA GARCIA Physical Therapy Mobilization Joint Physical Therapy Mobilization Joint 83676 019 OTILIA GARCIA Physical Therapy: ___ Se ion Segments, 15 Minutes Each Physical Therapy: ___ Session Segments, 15 Minutes Each 27547 019 OTILIA GARCIA Occupational Therapy Re-Evaluation Occupational Therapy Re-Evaluation 23912 019 OTILIA GARCIA Mobilization Soft Ti ue Mobilization Soft Tissue 14642 019 OTILIA GARCIA Physical Therapy: ___ Se ion Segments, 15 Minutes Each Physical Therapy: ___ Session Segments, 15 Minutes Each 65970 019 OTILIA GARCIA Finger orthosis, without joints, may include soft interface, custom fabricated, includes fitting and adjustment OTILIA POWELL Splint OTILIA GARCIA Physical Therapy: ___ Se ion Segments, 15 Minutes Each Physical Therapy: ___ Session Segments, 15 Minutes Each 66755 019 OTILIA GARCIA Occupational Therapy Evaluation Moderate Complexity 019 OTILIA GARCIA Non-Physician Phone Call To Patient/Provider Brief (5-10min) Non-Physician Phone Call To Patient/Provider Brief (5-10min) [phone] CARMEN ACEVEDO Non-Physician Phone Call To Patient/Provider Brief (5-10min) Non-Physician Phone Call To Patient/Provider Brief (5-10min) 94190 019 CARMEN ACEVEDO Ocular Photo Screening Bilateral With On-Site Analysis Ocular Photo Screening Bilateral With On-Site Analysis 09157 018 JULIA DURAN Paring / Curettage Of Benign Hyperkeratotic Lesions, 2-4 Paring / Curettage Of Benign Hyperkeratotic Lesions, 2-4 55100 MORENA PARRA Destruct Of Benign Lesion By Any Method Second Through 14 Destruct Of Benign Lesion By Any Method Second Through 14 47520 MORENA PARRA [facility] Destruction Of Benign Lesion By Any Method Destruction Of Benign Lesion By Any Method 69605 016 MORENA CHERRY [facility] Oropharynx Culture Streptococcus Group A Beta Hemolytic Oropharynx Culture Streptococcus Group A Beta Hemolytic 76201 015 DESMOND CHAUDHARY Provider order received to perform oropharynx swab for culture. Pt and MOP in Treatment Room #_1___. Pt identity verified using full name and . Provider order and procedure explained to Pt and/or MOP. Pt and/or MOP verbalized understanding of the information provided. Pt tolerated procedure with age-appropriate response and was easily consoled by MOP. Specimen labeled with Pt's full name and then placed in biohazard specimen bag. Provider to eval Pt OR Pt released from clinic per Provider direction. Specimen sent/delivered to Lab. [facility] Patient Education Asthma Metered Dose Inhaler Patient Education Asthma Metered Dose Inhaler 24971 011 JINNY CRAWLEY [facility] Screening Test Of Visual Acuity, Quantitative, Bilateral Screening Test Of Visual Acuity, Quantitative, Bilateral 92117 011 JINNY CRAWLEY [facility] Screening Test Of Visual Acuity, Quantitative, Bilateral Screening Test Of Visual Acuity, Quantitative, Bilateral 95571 010 DELMY LOVE [facility] DTaP Vaccine DTaP Vaccine 65258 008 MARK, CLAIRALYN L [facility] Vaccines Viral Polio, Inactivated Vaccines Viral Polio, Inactivated 14093 MARK, CLAIRALYN L [facility] Immunization Administration By Injection, Each Additional Vaccine Immunization Administration By Injection, Each Additional Vaccine 10988 008 MARK, CLAIRALYN L [facility] Vaccines Viral Varicella (Active) Vaccines Viral Varicella (Active) 11914 MARK, CLAIRALYN L [facility] Immunization Administration By Injection, One Vaccine Immunization Administration By Injection, One Vaccine 46997 008 MARK, CLAIRALYN L [facility] Postoperative Visit, Without Charge Postoperative Visit, Without Charge 49815 MARITA TAYLOR Splint, prefabricated, wrist or ankle MARITA TAYLOR [facility] No data available for this section Ambulato ry Pharmacy Social History Combined list of available smoking, tobacco, and other social history from Department of Defense and Veterans Affairs facilities. Social History Type Response Date Comment Sourc e This section is an empty social history section. [employer] Tobacco Frequent/Daily expos ure to secondhand smoke in indoor/confined spaces No. Cigarette use: Never-cigarette user. Other Tobacco use: Never-other tobacco user (not cigarettes). Ambulatory Pharmacy Sexual Orientation Ambula tory Pharmacy Gender identity Ambulator y Pharmacy Female Ambulatory Pha rmacy Assessment and Plan Combined list of future care activities from Department of Defense and Veterans Affairs facilities (e.g., assessment and plan notes, appointments, orders, and referrals). Additional future care activities may be listed in the Plan of Care section. Result Assessment and Plan Date Source Assessment and Plan Extracted from:Title : FM- CLAUDIA Author: PEDRO SANTOYO MD Date: 04/05/24 CLAUDIA - Generalized anxiety disorder Uncontrolled CLAUDIA with depression and sleep issues. Patient concern for fatigue with family hx of Fe def Anemia and thyroid disorder GAD7 - 13 PHQ9- 15 NO SI/HI. Discussed multiple options for medication options and pros and cons of Mirtazepine vs other options. Patient would like to restart Mirtazepine Plan: -Restart Mirtazepine - w ould like to restart to help MH and sleep symptoms. Aware o f weight gain side effect. Titarting to 30mg daily -Improve nutrtion and exercise -Recommended starting t herapy - may self-refer -Thryoid and iron def screening labs ordered -F/u in 4 weeks Maj DARIUSZ, MD [facility], PGY-3 Addendum by GAGE MANN MD on April 20, 2024 16:43:16 CDT I was present in the FM clinic to see this patient with the resident. I have reviewed and agree with the written findings. Gage Mann MD Future Scheduled TestsLaboratoryTSH w/ Reflex FT4 and Total T3 04/05/24Vitamin D 25 Hydroxy Level 04/05/24Iron Studies Panel 04/05/24CBC w/ Diff 04/05/24Comprehensive Metabolic Panel 04/05/24 08/30/2024 [id number] [facility] Assessment and Plan Extracted from:Title : FM- CLAUDIA Author: PEDRO SANTOYO MD Date: 04/05/24 CLAUDIA - Generalized anxiety disorder Uncontrolled CLAUDIA with depression and sleep issues. Patient concern for fatigue with family hx of Fe def Anemia and thyroid disorder GAD7 - 13 PHQ9- 15 NO SI/HI. Discussed multiple options for medication options and pros and cons of Mirtazepine vs other options. Patient would like to restart Mirtazepine Plan: -Restart Mirtazepine - w ould like to restart to help MH and sleep symptoms. Aware o f weight gain side effect. Titarting to 30mg daily -Improve nutrtion and exercise -Recommended starting t herapy - may self-refer -Thryoid and iron def screening labs ordered -F/u in 4 weeks Maj DARIUSZ, MD [facility] Family Medicine, PGY-3 Addendum by GAGE MANN MD on April 20, 2024 16:43:16 CDT I was present in the FM clinic to see this patient with the resident. I have reviewed and agree with the written findings. Gage Mann MD Future Scheduled TestsLaboratoryTSH w/ Reflex FT4 and Total T3 04/05/24Vitamin D 25 Hydroxy Level 04/05/24Iron Studies Panel 04/05/24CBC w/ Diff 04/05/24Comprehensive Metabolic Panel 04/05/24 08/30/2024 Ambulatory Pharmacy Functional Status Combined list of recent functional and cognitive assessments recorded at Department of Defense and Veterans Affairs ([facility]).VA Functional [place] Measurement (FIM) Scale: 1 = Total Assistance (Subject = 0% +), 2 = Maximal Assistance (Subject = 25% +), 3 = Moderate Assistance (Subject = 50% +), 4 = Minimal Assistance (Subject = 75% +), 5 = Supervision, 6 = Modified [place] (Device), 7 = Complete [place] (Timely, Safely). Assessment Date/Time Source Assessment Type Assessment Skill Assessment Score Assessment Details No data available for this section
--- OUTSIDE RECORDS SUMMARY | 2024-08-30 13:05 | XMS_ITS | Continuity of Care Document ---
Author Name [facility] Organization [facility] Care Team Providers Care Hot Die Press Feeder Name Role Phone [facility] Unavailable Unavailable Problems [...] continue for another month.f/u if no improvement. [facility] routine history and physical well-baby (28 days [...] total refill(s ), Maintena nce, Pharmacy : [facility] Oral (given by mouth) Ordered 10.0 6130C-A f-C-375 Th [facility] mirtazapine 30 mg oral tablet 1 tab(s), Oral, every day at bedtime, # 45 tab(s), 0 total refill(s ), [facility] Oral (given by mouth) Ordered 45.0 6130C-A f-C-375 Th [facility] Allergies, Adverse Reactions, Alerts Combined list of allergies from Department of Defense and Veterans Affairs facilities. It does not include entries that were removed or entered in error. Substance Category Reaction Severity Reaction type Status Date Reported Comments Source No Known Allergies Drug allergy (disorder) active 02/04/2018 [facility] [place] [address] Immunizations Combined list of available immunizations from the Department of Defense and Veterans Affairs facilities. Immunization Series Date Given Administered By Site Reaction Lot Number CVX Code Drug Bisque Brusher Status Comments Source Meningococcal MCV4O 2021 ALUL, () Not Given Meningoco ccal MCV4O DoD tetanus, diphtheria, acellular pertu is 2016 zzLef t Arm [id number] GlaxoSmithKli ne complet ed tetanus, diphtheri a, acellular pertussis 10/01/16 Given Ambulat ory Pharmac y meningococcal A,C,Y,W-135 (MCV4P) 2016 zzRig Arm [id number] sanofi pasteur complet ed meningoco ccal A,C,Y,W-1 35 (MCV4P) 10/01/16 Given Ambulat ory Pharmac y influenza, seasonal, injectable-pf 2016 zzRig Arm [id number] Seqirus complet ed influenza , seasonal, injectabl e-pf 10/01/16 Given Ambulat ory Pharmac y meningococcal polysaccharid e (groups A, C, Y and W-135) diphtheria toxoid conjugate vaccine (MCV4P) 1 2016 Unknown, Provider [id number] 114 Sanofi Pasteur ([facility]) complet ed meningoco ccal polysacch aride (groups A, C, Y and W-135) diphtheri a toxoid conjugate vaccine (MCV4P) DoD tetanus toxoid, reduced diphtheria toxoid, and acellular pertu is vaccine, adsorbed 1 2016 Unknown, Provider [id number] [facility] [employer] (SKB) complet ed tetanus toxoid, reduced diphtheri a toxoid, and acellular pertussis vaccine, adsorbed DoD Influenza, seasonal, injectable, preservative free 1 2016 Unknown, Provider [id number] Seqirus (SEQ) complet ed Influenza , seasonal, injectabl e, preservat nazario free DoD influenza, seasonal, injectable-pf 2014 [id number] CSL Behring complet ed influenza , seasonal, injectabl e-pf 05/05/15 Given Ambulat ory Pharmac y Influenza, seasonal, injectable, preservative free 1 2014 Unknown, Provider [id number] 140 [employer] (CSL) complet ed Influenza , seasonal, injectabl e, preservat nazario free DoD influenza virus vaccine,split 2009 zzLef t Arm [id number] A 15 sanofi pasteur complet ed influenza virus vaccine,s plit 01/08/10 Given Ambulat ory Pharmac y Novel influenza-H1N 1-09, injectable 2009 zzLef t Arm [id number] 127 sanofi pasteur complet ed Novel influenza -[id number], injectabl e 01/08/10 Given Ambulat ory Pharmac y influenza virus vaccine, split virus (incl. purified surface antigen)-reti red CODE 1 2009 Unknown, Provider [id number] 15 Sanofi Pasteur ([facility]) complet ed influenza virus vaccine, split virus (incl. purified surface antigen)- retired CODE DoD Novel influenza-H1N 1-09, injectable 1 2009 Unknown, Provider [id number] 127 Sanofi Pasteur ([facility]) complet ed Novel influenza -[id number], injectabl e DoD Novel influenza-H1N 1-09, injectable 2009 zzLef t Arm [id number] 127 sanofi pasteur complet ed Novel influenza -K9M4-03, injectabl e 10/19/09 Given Ambulat ory Pharmac y influenza virus vaccine,split 2009 zzLef t Arm [id number] A 15 sanofi pasteur complet ed influenza virus vaccine,s plit 10/19/09 Given Ambulat ory Pharmac y influenza virus vaccine, split virus (incl. purified surface antigen)-reti red CODE 1 2009 Unknown, Provider [id number] A 15 Sanofi Pasteur ([facility]) complet ed influenza virus vaccine, split virus (incl. purified surface antigen)- retired CODE DoD Novel influenza-H1N 1-09, injectable 1 2009 Unknown, Provider [id number] 127 Sanofi Pasteur ([facility]) complet ed Novel influenza -R2Z8-51, injectabl e DoD tuberculin purified protein derivative 2009 zzLef t Arm [id number] 96 sanofi pasteur complet ed Patient Tolerance : Negative Ambulat ory Pharmac y tuberculin skin test; purified protein derivative solution, intradermal 1 2009 Unknown, Provider [id number] 96 Sanofi Pasteur ([facility]) complet ed tuberculi n skin test; purified protein derivativ e solution, intraderm al DoD tuberculin purified protein derivative 2008 zzLef t Arm [id number] 96 sanofi pasteur complet ed Patient Tolerance [...] derivative solution, intradermal 1 2008 Unknown, Provider [id number] 96 Sanofi Pasteur ([facility]) complet ed tuberculi n skin test; purified protein derivativ e solution, intraderm al DoD varicella virus vaccine 2007 zzLef t Arm [id number] 21 Merck & Company Inc complet ed varicella virus vaccine 04/28/08 Given Ambulat ory Pharmac y poliovirus vaccine, inactivated 2007 zzLef t Arm [id number] 10 sanofi pasteur complet ed polioviru s vaccine, inactivat ed 04/28/08 Given Ambulat ory Pharmac y DTaP 2007 zzLef t Thigh [id number] 20 GlaxoSmithKli ne complet ed DTaP 04/28/08 Given Ambulat ory Pharmac y poliovirus vaccine, inactivated 4 2007 Unknown, Provider [id number] 10 Sanofi Pasteur ([facility]MC) complet ed polioviru s vaccine, inactivat ed DoD diphtheria, tetanus toxoids and acellular pertu is vaccine 5 2007 Unknown, Provider [id number] 4AA 20 [employer] Incine (SKB) complet ed diphtheri a, tetanus toxoids [...] 1 2007 Unknown, Provider [id number] 31 [employer] (SKB) complet ed hepatitis A vaccine, pediatric [...] Systolic Blood Pressure 132 mm[Hg] 04/05/2024 17:54:00 7220J-Tz-T-375[facility] Diastolic Blood Pressure 84 mm[Hg] 04/05/2024 17:54:00 3127L-Cq-A-375Th [facility] Mean Arterial Pressure, Calc 100 mm[Hg] 04/05/2024 17:54:00 2983S-Ac-I-3 75Th [facility] Peripheral Pulse Rate 84 bpm 04/05/2024 17:54:00 8065Z-Ig-H-375Th [facility] Respiratory Rate 14 br/min 04/05/2024 17:54:00 7442S-Vw-X-375Th [facility] BP Site Right arm 04/05/2024 17:54:00 6130C -Af-C-375Th [facility] Blood Pressure Manual Automatic 04/05/2024 17:54:00 4866X-Dr-G-375Th [facility] Encounters Combined list of: 1) Encounters [...] Source [employer](Ped iatrics Contract) OUTPATIENT [id number] elizabeth BENITO Jacome 10/30 Released w/o Limitations [employer](P ediatri cs Contrac t) [employer](Ped iatrics Contract) OUTPATIENT [id number] rash on stomach and legs BENITO NANCE 01/23 Released w/o Limitations [employer](P ediatri cs Contrac t) [place] [employer] OUTPATIENT [id number] skin rash for while, it goes away once but come back again JOY DICKSON ([place]) 12/16 Released w/o Limitations [place] ([place] [employer] ) [place] [employer]) OUTPATIENT [id number] rash on stomach area comes back again JOY DICKSON ([place]) 01/29 Released w/o Limitations [place] [employer] ) [place]([facility] Immunizat ions) OUTPATIENT [id number] 2 yo well AGA GONZALEZ 11/02 Released w/o Limitations [place] ([facility] Immuniz ations) [place]([facility] Immunizat ions) OUTPATIENT [id number] eczema getting worse AGA GONZALEZ 01/20 Released w/o Limitations [facility] ([facility] Immuniz ations) [facility]) OUTPATIENT [id number] 3yo well MARK, CLAIRALYN L 04/28 Released w/o Limitations [facility] ([place] [facility]) [facility]) OUTPATIENT [id number] 3yo-luis k circles on back,ey e MARK, CLAIRALYN L 05/25 Released w/o Limitations [facility] ([place] [facility]) OUTPATIENT [id number] 3yo-cou jyw5vio s;101t x 2days EMMANUELALEJANDRA K 10/18 Released w/o Limitations [facility] ([place] [facility]) [employer](Ped iatric Clinic) OUTPATIENT [id number] 4 year well DELMY LOVE S 09/22 Released w/o Limitations [employer](P ediatri c Clinic) [employer](Ped iatric Clinic) TELE CONSULT [id number] mop calling regardi ng pt's rimma hi rk dropped off on 0 KAITLIN HARMON 10/25 [employer](P ediatri c Clinic) [employer](Ped iatric Clinic) OUTPATIENT [id number] 5 year well child JINNY CRAWLEY A 08/03 Released w/o Limitations [employer](P ediatri c Clinic) [employer](Egl in Peds Driver) OUTPATIENT [id number] 6 yo physicGRACE Bedoya 03/12 Released w/o Limitations [employer](E glin Peds Driver) [employer](Exc eptional Family Mbr Program) TELE CONSULT [id number] Notes Entered by: Regi SOTO 12 Jun 2012 1204 ------- ------- ------- ------- -- Medical record review for relocat CHAIM Hopkins 06/12 [facility](E xceptio nal Family Mbr Program ) [facility](Exc eptional Family Mbr Program) OUTPATIENT [id number] Notes Entered by: ANA CLEMENS 23 Jun 2012 1534 ------- ------- ------- ------- -- Medical Kayla fam Appoint CHAIM Cano 06/23 Released w/o Limitations [address] [place] [address](E xceptio nal Family Mbr Program ) [place] [place] [address]([place] [facility]) OUTPATIENT [id number] PT HAS NOSE PAIN SEGUNDOYU RICO V 10/08 Released w/o Limitations [facility] [place] [address]([place] [facility]) [facility] [place] [address]([place] [facility]) OUTPATIENT [id number] cough MALIKA ELI 12/24 Released w/o Limitations [facility] [place] [address]([place] [facility]) [facility] [place] [address]([place] [facility]) OUTPATIENT [id number] WELL CHILD DESMOND CHAUDHARY 07/09 Released w/o Limitations [facility] [place] [address]([place] [facility]) [place] [address]([place] [facility]) OUTPATIENT [id number] pediatr ica dental DESMOND Delacruz 01/27 Released w/o Limitations [facility] [place] [address]([place] [facility]) [facility] [place] [address]([place] [facility]) OUTPATIENT [id number] fever sore throat DESMOND CHAUDHARY 08/15 Released w/o Limitations [facility] [place] [address]([place] [facility]) [facility] [place] [address]([place] [facility]) OUTPATIENT [id number] REFERRA L TO DERM/WH ASC PEDS DESMOND CHAUDHARY L 10/19 Released w/o Limitations [facility] [place] [address]([place] Ped [facility]) [facility] [place] [address]([facility]) OUTPATIENT [id number] MOLLUSC UM CONTAGI OSUM DANAY NOWAK P 11/10 Released w/o Limitations [facility] [address](Olivia duran,[facility]) [facility] [place] [address]([facility] Ped Team A) OUTPATIENT [id number] F/U FOR DENTAL ISSUES/ X-RAY/W H PEDDESMOND IQBAL L 04/27 Released w/o Limitations [facility] [place] [address]([place] [facility]) [facility] [place] [address]([facility] Ped Team A) OUTPATIENT [id number] ACNE PROBLEM POSS DERM CONSULT DESMOND CHAUDHARY L 08/30 [facility] w/[facility] Limitations [facility] [place] [address] [place] [address]([facility] Ped Team A) OUTPATIENT [id number] EVAL WART ON HANDS/W H PEDS DESMOND CHAUDHARY L 12/03 [facility] w/o Limitations [facility] [place] [address] [place] [place] [address]([facility], [facility]) OUTPATIENT [id number] Viral wart, unspeci maryjaneed MORENA CHERRY M 12/17 [facility]ased w/o Limitations [facility] [place] [address] [place] [address]([facility]) OUTPATIENT [id number] fever/s orethro at/stom achache /cough JUDITH MURRELL 12/22 Released w/o Limitations [place] [address]([facility], [facility]) [employer](Egl in Peds Alpha) OUTPATIENT [id number] JULIA Love 02/02 Released w/o Limitations [employer](E glin Peds Alpha) [employer](Egl in Peds Rdiver) TELE CONSULT [id number] Notes Entered by: RASHID DURAN 04 Feb 2018 0755 ------- ------- ------- ------- -- Lab Results CARMEN ACEVEDO 02/04 Referred for Appointment [employer](E glin Peds Driver) [employer]([facility]eds Alpha) OUTPATIENT [id number] lab results JULIA DURAN 02/04 Released w/o Limitations [employer](E glin Peds Alpha) [employer](Egl in Peds Driver) OUTPATIENT [id number] fu appt/lo JACOBY Barboza 05/26 Released w/o Limitations [employer](E glin Peds Driver) [employer](Egl in Peds Driver) TELE CONSULT [id number] Notes Entered by: JACOBY FORD 28 May 2018 0850 ------- ------- ------- ------- -- Please check for urine results on 8. SILVIA ARVIZU 05/28 Referred for Appointment [employer](E glin Peds Driver) [employer](Egl in Peds Driver) TELE CONSULT [id number] Notes Entered by: ANGELA ACEVEDO 20 Jul 2018 0919 ------- ------- ------- ------- -- ER F/u CARMEN ACEVEDO 07/20 Other Not Elsewhere Classified [employer](E glin Peds Driver) [employer](Ort hopedi EG) OUTPATIENT [id number] Fx R distal Radius MEL PATEL 07/20 Released w/o Limitations [employer](O rthoped ic EG) [employer](Egl in Peds Driver) TELE CONSULT [id number] Notes Entered by: JACOBY FORD 23 Jul 2018 0856 ------- ------- ------- ------- -- Normal test for fecal blood. CARMEN ACEVEDO 07/23 Referred for Appointment [employer](E glin [facility] Driver) [employer](Ort hopedic EG) OUTPATIENT [id number] 8 f/u right wrist BRYAN CHASE 07/23 Released w/o Limitations [employer](O rthoped ic EG) [employer](Ort hopedic EG) OUTPATIENT [id number] POSTOP ORIF Wrist ([facility]) - DOS 11 Jul BRYAN CHASE 08/04 Released w/o Limitations [employer](O rthoped ic EG) [employer](Occ upat Ther EG) OUTPATIENT [id number] right distal radius thermop last splint. DOS 11 Jul OTILIA GARCIA 08/05 Released w/o Limitations [employer](O ccupat Ther EG) [employer](Occ upat Ther EG) OUTPATIENT [id number] OTILIA GARCIA 08/12 Released w/o Limitations [employer](O ccupat Ther EG) [employer](Ort hopedic EG) OUTPATIENT [id number] 2 f/u because Kota says so BRYAN CHASE 08/27 Released w/o Limitations [employer](O rthoped ic EG) [employer](Occ upat Ther EG) OUTPATIENT [id number] OTILIA GARCIA 09/04 Released w/o Limitations [employer](O ccupat Ther EG) [employer](Occ upat Ther EG) OUTPATIENT [id number] OTILIA GARCIA 09/10 Released w/o Limitations [employer](O ccupat Ther EG) [employer](Occ upat Ther EG) OUTPATIENT [id number] OTILIA GARCIA 09/18 Released w/o Limitations [employer](O ccupat Ther EG) [facility](Ort hopedic EG) OUTPATIENT [id number] 6 f/u right wrist BRYAN CHASE 09/28 Released w/o Limitations [employer](O rthoped ic EG) [facility](Occ upat Ther EG) OUTPATIENT [id number] OTILIA GARCIA 09/29 Released w/o Limitations [employer](O ccupat Ther EG) [facility](Egl in Peds Driver) OUTPATIENT [id number] REFERRA BETHEL TSANG 04/21 Released w/o Limitations [employer](E glin Peds Driver) [facility](Egl in Peds Driver) TELE CONSULT [id number] Notes Entered by: Queta HARMON 27 May 2019 1418 ------- ------- ------- ------- -- NETWORK RESULT - SURG 9 BETHEL CHAUDHARY 05/27 [facility](E glin Peds Driver) [facility](Ort hopedic EG) OUTPATIENT [id number] PREOP - DOS Jun BRYAN CHASE 06/17 Released w/o Limitations [employer](O rthoped ic EG) [facility](Ort hopedic EG) OUTPATIENT [id number] POSTOP Right Wrist [facility] ([facility]) - DOS Jun MARITA TAYLOR 07/16 Released w/o Limitations [employer] [facility](O rthoped ic EG) [facility](Ort hopedic EG) OUTPATIENT [id number] 0 f/u right wrist BRYAN CHASE 07/29 Released w/o Limitations [facility](O rthoped ic EG) 6130C-Af- C-[facility]Th [facility] [id number] General ized anxiety disorde paula SOLIS 04/05 Discharge Disposition: Home or Self Care 6130C-A f-C-375 Th [facility] Procedures Combined list of: 1) Procedures from Department of Veterans Affairs facilities going back up to thelast 18 months, not all VA non-surgical procedures are included; 2) All procedures from the Department of Defense facilities. Procedure Procedure Type Code Date Perfomer Comments Sourc e No data available for this section [facility] DIPHTHERIA, TETANUS TOXOIDS, AND ACELLULAR PERTUSSIS VACCINE (DTAP), WHEN ADMINISTERED TO INDIVIDUALS YOUNGER THAN 7 YEARS, FOR INTRAMUSCULAR USE [facility] UNLISTED SPECIAL SERVICE, PROCEDURE OR REPORT [facility] PARING OR CUTTING OF BENIGN HYPERKERATOTIC LESION (EG, CORN OR CALLUS); 2 TO 4 LESIONS [facility] DEEP SEDATION/GENERAL ANESTHESIA-EACH ADDITIONAL 15 MINUTES [facility] CULTURE, PRESUMPTIVE, PATHOGENIC ORGANISMS, SCREENING ONLY [facility] DEEP SEDATION/GENERAL ANESTHESIA-EACH ADDITIONAL 15 MINUTES 014 [facility] POSTOPERATIVE FOLLOW-UP VISIT, NORMALLY INCLUDED IN THE SURGICAL PACKAGE, INDICATE THAT EVALUATION & MANAGEMENT SERVICE WAS PERFORMED DURING A POSTOPERATIVE PERIOD REASON RELATED ORIGINAL PROCEDURE [facility] SPLINT, PREFABRICATED, WRIST OR ANKLE [facility] UNLISTED SPECIAL SERVICE, PROCEDURE OR REPORT [facility] RE-EVALUATION OF OCCUPATIONAL THERAPY ESTABLISHED PLAN OF CARE,REQ:ASSESS CHANGES IN PAT FUNCT/MED STATUS W REVISED PLAN OF CARE;TYPICALLY, 30 MINUTES ARE SPENT [id number]-[id number] WITH THE PATIENT &/FAMILY [facility] POSTOPERATIVE FOLLOW-UP VISIT, NORMALLY INCLUDED IN THE SURGICAL PACKAGE, INDICATE THAT EVALUATION & MANAGEMENT SERVICE WAS PERFORMED DURING A POSTOPERATIVE PERIOD REASON RELATED ORIGINAL PROCEDURE [facility] RE-EVALUATION OF OCCUPATIONAL THERAPY ESTABLISHED PLAN OF CARE,REQ:ASSESS CHANGES IN PAT FUNCT/MED STATUS W REVISED PLAN OF CARE;TYPICALLY, 30 MINUTES ARE SPENT [id number]-[id number] WITH THE PATIENT &/FAMILY [facility] RE-EVALUATION OF OCCUPATIONAL THERAPY ESTABLISHED PLAN OF CARE,REQ:ASSESS CHANGES IN PAT FUNCT/MED STATUS W REVISED PLAN OF CARE;TYPICALLY, 30 MINUTES ARE SPENT [id number]-[id number] WITH THE PATIENT &/FAMILY [facility] THERAPEUTIC PROCEDURE, 1 OR MORE AREAS, EACH 15 MINUTES; THERAPEUTIC EXERCISES TO DEVELOP STRENGTH AND ENDURANCE, RANGE OF MOTION AND FLEXIBILITY [facility] THERAPEUTIC PROCEDURE, 1 OR MORE AREAS, EACH 15 MINUTES; THERAPEUTIC EXERCISES TO DEVELOP STRENGTH AND ENDURANCE, RANGE OF MOTION AND FLEXIBILITY 019 [facility] FINGER ORTHOSIS, WITHOUT JOINTS, MAY INCLUDE SOFT INTERFACE, CUSTOM FABRICATED INCLUDES FITTING AND ADJUSTMENT 019 [facility] OPEN TREATMENT OF DISTAL RADIAL INTRA-ARTICULAR FRACTURE [...] 24 HR/SOON APT;5-10 MIN MED DIS 019 [facility] SCREENING TEST OF VISUAL ACUITY, QUANTITATIVE, BILATERAL 018 [facility] DEMONSTRATION AND/OR EVALUATION OF PATIENT UTILIZATION OF AN AEROSOL GENERATOR, NEBULIZER, METERED DOSE INHALER OR IPPB DEVICE 011 [facility] SCREENING TEST OF VISUAL ACUITY, QUANTITATIVE, BILATERAL 010 [facility] Occupational Therapy Re-Evaluation Occupational Therapy Re-Evaluation [phone] OTILIA GARCIA [facility] Physical Therapy: ___ Se ion Segments, 15 Minutes Each Physical Therapy: ___ Session Segments, 15 Minutes Each [id number] 019 OTILIA GARCIA [facility] Occupational Therapy Re-Evaluation Occupational Therapy Re-Evaluation [phone] OTILIA GARCIA [facility] Physical Therapy: ___ Se ion Segments, 15 Minutes Each Physical Therapy: ___ Session Segments, 15 Minutes Each [id number] 019 OTILIA GARCIA [facility] Physical Therapy Mobilization Joint Physical Therapy Mobilization Joint 78836 019 OTILIA GARCIA [facility] Occupational Therapy Re-Evaluation Occupational Therapy Re-Evaluation 78192 019 OTILIA GARCIA [facility] Physical Therapy: ___ Se ion Segments, 15 Minutes Each Physical Therapy: ___ Session Segments, 15 Minutes Each 31826 019 OTILIA GARCIA Physical Therapy Mobilization Joint Physical Therapy Mobilization Joint [phone] OTILIA GARCAI Physical Therapy Mobilization Joint Physical Therapy Mobilization Joint 58169 019 OTILIA GARCIA Physical Therapy: ___ Se ion Segments, 15 Minutes Each Physical Therapy: ___ Session Segments, 15 Minutes Each 94173 019 OTILIA GARCIA Occupational Therapy Re-Evaluation Occupational Therapy Re-Evaluation 41019 019 OTILIA GARCIA Mobilization Soft Ti ue Mobilization Soft Tissue 00581 019 OTILIA GARCIA Physical Therapy: ___ Se ion Segments, 15 Minutes Each Physical Therapy: ___ Session Segments, 15 Minutes Each 49645 019 OTILIA GARCIA Finger orthosis, without joints, may include soft interface, custom fabricated, includes fitting and adjustment OTILIA POWELL Splint OTILIA GARCIA Physical Therapy: ___ Se ion Segments, 15 Minutes Each Physical Therapy: ___ Session Segments, 15 Minutes Each 61992 019 OTILIA GARCIA Occupational Therapy Evaluation Moderate Complexity 019 OTILIA GARCIA Non-Physician Phone Call To Patient/Provider Brief (5-10min) Non-Physician Phone Call To Patient/Provider Brief (5-10min) 15232 019 CARMEN ACEVEDO Non-Physician Phone Call To Patient/Provider Brief (5-10min) Non-Physician Phone Call To Patient/Provider Brief (5-10min) 59686 019 CARMEN ACEVEDO Ocular Photo Screening Bilateral With On-Site Analysis Ocular Photo Screening Bilateral With On-Site Analysis [phone] JULIA DURAN Paring / Curettage Of Benign Hyperkeratotic Lesions, 2-4 Paring / Curettage Of Benign Hyperkeratotic Lesions, 2-4 58320 MORENA CHERRY Destruct Of Benign Lesion By Any Method Second Through 14 Destruct Of Benign Lesion By Any Method Second Through 14 MORENA CHERRY [facility] Destruction Of Benign Lesion By Any Method Destruction Of Benign Lesion By Any Method 016 MORENA CHERRY [facility] Oropharynx Culture Streptococcus Group A Beta Hemolytic Oropharynx Culture Streptococcus Group A Beta Hemolytic 67302 015 DESMOND CHUADHARY Provider order received to perform oropharynx swab [...] per Provider direction. Specimen sent/delivered to Lab. [facility] Patient Education Asthma Metered Dose Inhaler Patient Education Asthma Metered Dose Inhaler 97851 011 JINNY CRAWLEY [facility] Screening Test Of Visual Acuity, Quantitative, Bilateral Screening Test Of Visual Acuity, Quantitative, Bilateral 66115 011 JINNY CRAWLEY [facility] Screening Test Of Visual Acuity, Quantitative, Bilateral Screening Test Of Visual Acuity, Quantitative, Bilateral 19014 010 DELMY LOVE [facility] DTaP Vaccine DTaP Vaccine 62910 MARK, CLAIRALYN L [facility] Vaccines Viral Polio, Inactivated Vaccines Viral Polio, Inactivated 05559 MARK, CLAIRALYN L [facility] Immunization Administration By Injection, Each Additional Vaccine Immunization Administration By Injection, Each Additional Vaccine 44810 008 MARK, CLAIRALYN L [facility] Vaccines Viral Varicella (Active) Vaccines Viral Varicella (Active) 48249 008 MARK, CLAIRALYN L [facility] Immunization Administration By Injection, One Vaccine Immunization Administration By Injection, One Vaccine 48290 008 MARK, CLAIRALYN L [facility] Postoperative Visit, Without Charge Postoperative Visit, Without Charge 52648 MARITA TAYLOR [facility] Splint, prefabricated, wrist or ankle MARITA TAYLOR [facility] Social History Combined list of available smoking, tobacco, and other social history from [facility] and [facility] facilities. Social History Type Response Date Comment Sourc e Tobacco Frequent/Daily expos ure to secondhand smoke in indoor/confined spaces No. Cigarette use: Never-cigarette user. Other Tobacco use: Never-other tobacco user (not cigarettes). Ambulatory Pharmacy Sexual Orientation [facility] Gender identity [facility] Female [facility] This section is an empty social history section. [facility] Assessment and Plan Combined list of future [...] w/ Diff 04/05/24Comprehensive Metabolic Panel 04/05/24 08/30/2024 [id number] [facility] and Plan Extracted from:Title : FM- [...] 4 weeks Maj DARIUSZ, MD [facility] Family Medicine, PGY-3 Addendum by GAGE MANN [...] of Defense and Veterans Affairs (VA).VA Functional [place] Measurement (FIM) Scale: 1 = Total Assistance (Subject = 0% +), 2 = Maximal Assistance (Subject = 25% +), 3 = Moderate Assistance (Subject = 50% +), 4 = Minimal Assistance (Subject = 75% +), 5 = Supervision, 6 = Modified [place] (Device), 7 = Complete [place] (Timely, Safely). Assessment Date/Time Source Assessment Type Assessment Skill Assessment Score Assessment Details No data available for this section
== END 2024-08-30 11:05 | disposition home or self-care (01) ==
PROVIDERS: Emergency Provider Nurse Practitioner Family
DX: S00.83XA Contusion of other part of head, initial encounter (principal); W22.8XXA Striking against or struck by other objects, initial encounter
CPT/HCPCS: 99202; G0463